=== PATIENT | female | born 1990 | race Two or more races ===

== ENCOUNTER → 2016-09-08 | Outpatient (CLI) | payer MEDICAID ==
[~2016-09-08] MED LIST: Ibuprofen Micronized PO; PREN-129 PO
== END | disposition home or self-care (01) ==
LOC: LAB 15:26
PROVIDERS: ATTEND Obstetrics & Gynecology
DX: N91.2 Amenorrhea, unspecified (principal)
CPT/HCPCS: 36415; 84144; 84702

== ENCOUNTER 2017-12-23 16:37 | Emergency (ER) | payer MEDICAID ==
[~2017-12-23] VITALS: Ht 170.2 cm; Wt 65.3 kg
[2017-12-23 16:40] VITALS: BP 117/54
[2017-12-23 17:30] LABS: Basophils # (auto) 0 uL; Basophils % (auto) 0.7 % (0.0-2.0); Eosinophils # (auto) 0.2 uL; Eosinophils % (auto) 2.9 % (0.0-7.0); Hematocrit 38.2 % (36.0-46.0); Hemoglobin 13.1 g/dL (12.2-16.2); Lymphocytes # (auto) 2.5 uL; Lymphocytes % (auto) 39.3 % (10.0-50.0); Mean Corpuscular Hemoglobin 31.8 pg (28.0-32.0); Mean Corpuscular Hgb Conc. 34.2 g/dL (32.0-36.0); Monocytes # (auto) 0.6 uL; Monocytes % (auto) 10.1 % (0.0-12.0); Neutrophils # (auto) 2.9 uL; Nucleated Red Blood Cells % 0.2 %; Platelet Count (auto) 219 10^3/uL (140-450); Red Blood Cells 4.11 10^6/uL (4.0-5.20); Red Cell Distribution Width 13.3 % (11.8-14.3); White Blood Cell 6.3 10^3/uL (4.4-10.8)
== END 2017-12-23 18:20 | disposition home or self-care (01) ==
LOC: ER 16:37
DX: O20.0 Threatened abortion (principal); Z3A.01 Less than 8 weeks gestation of pregnancy
CPT/HCPCS: 36415; 76801; 76817; 84702; 85025

== ENCOUNTER → 2018-01-03 | Outpatient (CLI) | payer MEDICAID | END | disposition home or self-care (01) | LOC: LAB 08:44 | PROVIDERS: ATTEND Obstetrics & Gynecology | DX: N91.2 Amenorrhea, unspecified (principal); N94.89 Other specified conditions associated with female genital organs and menstrual cycle | CPT/HCPCS: 36415; 84702 ==

== ENCOUNTER 2018-11-28 01:43 | Emergency (ER) | payer MEDICAID ==
[~2018-11-28] VITALS: Ht 165.1 cm; Wt 66.2 kg
[2018-11-28 02:24] LABS: Basophils # (auto) 0.1 uL; Basophils % (auto) 1.2 % (0.0-2.0); Eosinophils # (auto) 0.6 uL; Eosinophils % (auto) 5.6 % (0.0-7.0); Hematocrit 39.1 % (36.0-46.0); Hemoglobin 13.4 g/dL (12.2-16.2); Lymphocytes # (auto) 3.1 uL; Lymphocytes % (auto) 27.9 % (10.0-50.0); Mean Corpuscular Hemoglobin 31.5 pg (28.0-32.0); Mean Corpuscular Hgb Conc. 34.2 g/dL (32.0-36.0); Mean Corpuscular Volume 92.3 fL (80.0-100.0); Monocytes # (auto) 1.1 uL; Monocytes % (auto) 9.7 % (0.0-12.0); Neutrophils # (auto) 6.1 uL; Neutrophils % (auto) 55.6 % (37.0-80.0); Nucleated Red Blood Cells % 0.1 %; Platelet Count (auto) 206 10^3/uL (140-450); Red Blood Cells 4.24 10^6/uL (4.0-5.20); White Blood Cell 11.1 10^3/uL (4.4-10.8)
[2018-11-28 02:33] LABS: Urine Amorphous Crystal FEW /hpf (None Seen); Urine Bacteria FEW /hpf (None Seen); Urine Blood Negative /uL (Negative); Urine Specific Gravity 1.005 (1.001-1.035); Urine WBC 3 /hpf (0 - 5)
[2018-11-28 02:41] LABS: Albumin 3.7 g/dL (3.4-5.0); Calcium 9.1 mg/dL (8.5-10.1); Potassium 3.8 mmol/L (3.5-5.1)
[2018-11-28 02:44] LABS: BUN/Creatinine Ratio 11.3; Bilirubin, Total 0.2 mg/dL (0.2-1.0); Total Protein 7.1 g/dL (6.4-8.2)
[2018-11-28 04:30] VITALS: BP 104/63
== END 2018-11-28 05:28 | disposition home or self-care (01) ==
LOC: ER 01:47
DX: O26.891 Other specified pregnancy related conditions, first trimester (principal); R11.0 Nausea; R10.13 Epigastric pain; R51 Headache; Z79.1 Long term (current) use of non-steroidal anti-inflammatories (NSAID); Z79.899 Other long term (current) drug therapy; Z3A.01 Less than 8 weeks gestation of pregnancy
CPT/HCPCS: 36415; 76801; 76817; 80053; 81001; 84702; 85025

== ENCOUNTER 2019-02-21 22:43 | Observation (INO) | payer MEDICAID ==
[~2019-02-21] VITALS: Ht 170.2 cm; Wt 66.2 kg
== END 2019-02-21 23:25 | disposition home or self-care (01) | DRG 566 ==
LOC: LDRP 22:43
PROVIDERS: ADMIT Specialist; ATTEND Specialist
DX: O26.892 Other specified pregnancy related conditions, second trimester (principal); R10.9 Unspecified abdominal pain; Z3A.20 20 weeks gestation of pregnancy
CPT/HCPCS: 59025; 81002; G0378

== ENCOUNTER 2019-04-05 17:55 | Observation (INO) | payer MEDICAID ==
[~2019-04-05] VITALS: Ht 170.2 cm; Wt 68.9 kg
[2019-04-05] MEDS ORDERED: TERBUTALINE SULFATE 1 MG/ML 1ML VIAL SC SCH (20:15)
[2019-04-05] MEDS ORDERED: TERBUTALINE SULFATE 1 MG/ML 1ML VIAL SC ONE (20:15)
== END 2019-04-05 21:53 | disposition home or self-care (01) | DRG 566 ==
LOC: LDRP 17:55
PROVIDERS: ADMIT Specialist; ATTEND Specialist
DX: O26.892 Other specified pregnancy related conditions, second trimester (principal); R10.2 Pelvic and perineal pain; Z3A.26 26 weeks gestation of pregnancy
CPT/HCPCS: 59025; 81002; 96372; G0378; J3105

== ENCOUNTER 2019-04-15 13:39 | Observation (INO) | payer MEDICAID | END 2019-04-15 14:50 | disposition home or self-care (01) | DRG 566 | LOC: LDRP 13:39 | PROVIDERS: ADMIT Specialist; ATTEND Specialist | DX: O26.893 Other specified pregnancy related conditions, third trimester (principal); M54.9 Dorsalgia, unspecified; Z3A.28 28 weeks gestation of pregnancy | CPT/HCPCS: 59025; 81002; G0378 ==

== ENCOUNTER 2019-05-14 11:10 | Observation (INO) | payer MEDICAID ==
[~2019-05-14] VITALS: Ht 170.2 cm; Wt 72.6 kg
[2019-05-14] MEDS ORDERED: BETAMETHASONE ACET (6MG/ML) 5ML VIAL ONE (12:14)
[2019-05-14] MEDS ORDERED: BETAMETHASONE ACET (6MG/ML) 5ML VIAL IM SCH (12:30)
[2019-05-15] MEDS ORDERED: BETAMETHASONE ACET (6MG/ML) 5ML VIAL IM SCH (10:00)
[2019-05-15] MEDS ORDERED: NIF10C PO (13:26)
== END 2019-05-14 12:40 | disposition home or self-care (01) | DRG 563 ==
LOC: LDRP 11:10
PROVIDERS: ADMIT Obstetrics & Gynecology; ATTEND Obstetrics & Gynecology
DX: O60.03 Preterm labor without delivery, third trimester (principal); Z3A.32 32 weeks gestation of pregnancy
CPT/HCPCS: 59025; 81002; 96372; G0378; J0702

== ENCOUNTER 2019-05-15 12:45 | Observation (INO) | payer MEDICAID ==
[~2019-05-15] VITALS: Ht 30.5 cm; Wt 0.5 kg
[2019-05-15] MEDS ORDERED: BETAMETHASONE ACET (6MG/ML) 5ML VIAL IM ONE (13:15)
[2019-05-15] MEDS ORDERED: NIF10C PO (13:26)
== END 2019-05-15 13:51 | disposition home or self-care (01) | DRG 563 ==
LOC: LDRP 12:45
PROVIDERS: ADMIT Specialist; ATTEND Specialist
DX: O60.03 Preterm labor without delivery, third trimester (principal); Z3A.32 32 weeks gestation of pregnancy
CPT/HCPCS: 59025; 81002; 96372; G0378; J0702

== ENCOUNTER 2019-05-21 12:40 | Observation (INO) | payer MEDICAID ==
[~2019-05-21 12:40] MED LIST changes: -Ibuprofen Micronized PO; +NIF10C PO
== END 2019-05-21 13:35 | disposition home or self-care (01) | DRG 563 ==
LOC: LDRP 12:40
PROVIDERS: ADMIT Obstetrics & Gynecology; ATTEND Obstetrics & Gynecology
DX: O60.03 Preterm labor without delivery, third trimester (principal); Z3A.33 33 weeks gestation of pregnancy
CPT/HCPCS: 59025; 81002; G0378

== ENCOUNTER 2019-05-22 12:08 | Observation (INO) | payer MEDICAID | END 2019-05-22 13:10 | disposition home or self-care (01) | DRG 563 | LOC: LDRP 12:08 | PROVIDERS: ADMIT Obstetrics & Gynecology; ATTEND Obstetrics & Gynecology | DX: O60.03 Preterm labor without delivery, third trimester (principal); O26.893 Other specified pregnancy related conditions, third trimester; H53.8 Other visual disturbances; R42 Dizziness and giddiness; R10.30 Lower abdominal pain, unspecified; O99.89 Other specified diseases and conditions complicating pregnancy, childbirth and the puerperium; Z3A.33 33 weeks gestation of pregnancy | CPT/HCPCS: 59025; 81002; G0378 ==

== ENCOUNTER 2019-05-28 15:00 | Observation (INO) | payer MEDICAID | END 2019-05-28 15:55 | disposition home or self-care (01) | DRG 563 | LOC: LDRP 15:00 | PROVIDERS: ADMIT Specialist; ATTEND Specialist | DX: O60.03 Preterm labor without delivery, third trimester (principal); Z3A.34 34 weeks gestation of pregnancy | CPT/HCPCS: 59025; 81002; G0378 ==

== ENCOUNTER 2019-06-04 14:39 | Observation (INO) | payer MEDICAID | END 2019-06-04 15:45 | disposition home or self-care (01) | DRG 563 | LOC: LDRP 14:39 | PROVIDERS: ADMIT Obstetrics & Gynecology; ATTEND Obstetrics & Gynecology | DX: O60.03 Preterm labor without delivery, third trimester (principal); O26.873 Cervical shortening, third trimester; Z3A.35 35 weeks gestation of pregnancy | CPT/HCPCS: 59025; 81002; G0378 ==

== ENCOUNTER 2019-06-06 23:05 | Observation (INO) | payer MEDICAID | END 2019-06-07 00:53 | disposition home or self-care (01) | DRG 566 | LOC: LDRP 23:05 | PROVIDERS: ADMIT Specialist; ATTEND Specialist | DX: O34.63 Maternal care for abnormality of vagina, third trimester (principal); N89.8 Other specified noninflammatory disorders of vagina; Z3A.35 35 weeks gestation of pregnancy | CPT/HCPCS: 59025; 76815; 81002; G0378 ==

== ENCOUNTER 2019-06-09 19:16 | Observation (INO) | payer MEDICAID | END 2019-06-09 20:14 | disposition home or self-care (01) | DRG 566 | LOC: LDRP 19:16 | PROVIDERS: ADMIT Obstetrics & Gynecology; ATTEND Obstetrics & Gynecology | DX: O62.9 Abnormality of forces of labor, unspecified (principal); O60.03 Preterm labor without delivery, third trimester; Z3A.36 36 weeks gestation of pregnancy | CPT/HCPCS: 59025; 81002; G0378 ==

== ENCOUNTER 2019-06-12 11:05 | Observation (INO) | payer MEDICAID | END 2019-06-12 12:40 | disposition home or self-care (01) | DRG 563 | LOC: LDRP 11:05 | PROVIDERS: ADMIT Obstetrics & Gynecology; ATTEND Obstetrics & Gynecology | DX: O60.03 Preterm labor without delivery, third trimester (principal); Z3A.36 36 weeks gestation of pregnancy | CPT/HCPCS: 59025; 81002; G0378 ==

== ENCOUNTER 2019-06-19 09:40 | Observation (INO) | payer MEDICAID | END 2019-06-19 10:21 | disposition home or self-care (01) | DRG 563 | LOC: LDRP 09:40 | PROVIDERS: ADMIT Obstetrics & Gynecology; ATTEND Obstetrics & Gynecology | DX: O60.03 Preterm labor without delivery, third trimester (principal); Z3A.37 37 weeks gestation of pregnancy | CPT/HCPCS: 59025; G0378 ==

== ENCOUNTER 2019-06-24 10:05 | Observation (INO) | payer MEDICAID ==
[~2019-06-24 10:05] MED LIST changes: -NIF10C PO
== END 2019-06-24 12:30 | disposition home or self-care (01) | DRG 861 ==
LOC: LDRP 10:05
PROVIDERS: ADMIT Obstetrics & Gynecology; ATTEND Obstetrics & Gynecology
DX: Z34.90 Encounter for supervision of normal pregnancy, unspecified, unspecified trimester (principal)
CPT/HCPCS: 59025; 81002; G0378

== ENCOUNTER 2019-07-04 18:46 | Emergency (ER) | payer MEDICAID ==
[~2019-07-04] VITALS: Ht 170.2 cm; Wt 66.7 kg
[2019-07-04 21:36] LABS: Albumin 2.9 g/dL (3.4-5.0); BUN/Creatinine Ratio 5.7; Potassium 3.3 mmol/L (3.5-5.1)
[2019-07-04 21:39] LABS: Bilirubin, Total 0.5 mg/dL (0.2-1.0); Total Protein 7.6 g/dL (6.4-8.2)
[2019-07-04 21:40] LABS: Basophils # (auto) 0 uL; Basophils % (auto) 0.2 % (0.0-2.0); Eosinophils # (auto) 0 uL; Eosinophils % (auto) 0.4 % (0.0-7.0); Hematocrit 38.4 % (36.0-46.0); Lymphocytes % (auto) 17.1 % (10.0-50.0); Mean Corpuscular Hemoglobin 32.2 pg (28.0-32.0); Mean Corpuscular Hgb Conc. 33.8 g/dL (32.0-36.0); Mean Corpuscular Volume 95.3 fL (80.0-100.0); Monocytes % (auto) 8.8 % (0.0-12.0); Neutrophils # (auto) 8.7 uL; Neutrophils % (auto) 73.5 % (37.0-80.0); Platelet Count (auto) 295 10^3/uL (140-450); Red Blood Cells 4.03 10^6/uL (4.0-5.20); Red Cell Distribution Width 13.3 % (11.8-14.3); White Blood Cell 11.9 10^3/uL (4.4-10.8)
[2019-07-05 03:19] VITALS: BP 110/70
[2019-07-05] MEDS ORDERED: METHYLERGONOVINE MALEATE 0.2 MG/ML AMP IM ONE (04:30)
[2019-07-05] MEDS ORDERED: SODIUM CHLORIDE 0.9% 1,000 ML IV ONE (04:45)
== END 2019-07-05 06:19 | disposition home or self-care (01) ==
LOC: ER 18:46
DX: O72.1 Other immediate postpartum hemorrhage (principal); O86.20 Urinary tract infection following delivery, unspecified
CPT/HCPCS: 36415; 76856; 80053; 85025; 96372; 99284; J2210

== ENCOUNTER 2022-07-07 09:41 | Observation (INO) | payer MEDICAID | END 2022-07-07 12:15 | disposition home or self-care (01) | LOC: LDRP 09:41 → UNDOADMOB 09:41 → LDRP 09:46 → UNDODISOB 12:15 | PROVIDERS: ADMIT Obstetrics & Gynecology; ATTEND Obstetrics & Gynecology | DX: O13.2 Gestational [pregnancy-induced] hypertension without significant proteinuria, second trimester (principal); O46.92 Antepartum hemorrhage, unspecified, second trimester; Z3A.26 26 weeks gestation of pregnancy | CPT/HCPCS: 59025; 76815; 81002; 94760; G0378 ==

== ENCOUNTER 2022-07-20 23:25 | Emergency (ER) | payer MEDICAID ==
[~2022-07-20] VITALS: Ht 170.2 cm; Wt 67.5 kg
[2022-07-21 05:21] VITALS: BP 117/64
== END 2022-07-21 05:30 | disposition home or self-care (01) ==
LOC: ER 23:25
DX: O99.513 Diseases of the respiratory system complicating pregnancy, third trimester (principal); J06.9 Acute upper respiratory infection, unspecified; Z20.822 Contact with and (suspected) exposure to COVID-19; Z3A.28 28 weeks gestation of pregnancy
CPT/HCPCS: 36415; 87426; 87804

== ENCOUNTER 2022-08-02 11:26 | Observation (INO) | payer MEDICAID ==
[~2022-08-02] VITALS: Ht 170.2 cm; Wt 69.9 kg
[2022-08-02] MEDS ORDERED: TERBUTALINE SULFATE 1 MG/ML 1ML VIAL SC SCH (12:30)
[2022-08-02] MEDS ORDERED: NIFEdipine 10 MG CAP PO ONE (12:30)
[2022-08-02] MEDS ORDERED: BETAMETHASONE ACET (30mg/5ml) 5ml Vial 6mg/ml IM ONE (12:45)
[2022-08-02] MEDS ORDERED: NIF10C PO (13:58)
[2022-08-02] MEDS ORDERED: PREN-96 PO (13:58)
[2022-08-03] MEDS ORDERED: HYDR250I6 IM (13:41)
== END 2022-08-02 14:05 | disposition home or self-care (01) ==
LOC: UNDOADMOB 11:26 → LDRP 11:26 → UNDODISOB 14:05
PROVIDERS: ADMIT Obstetrics & Gynecology; ATTEND Obstetrics & Gynecology
DX: O60.03 Preterm labor without delivery, third trimester (principal); Z3A.30 30 weeks gestation of pregnancy
CPT/HCPCS: 59025; 81002; 94760; 96372; G0378; J0702; J3105

== ENCOUNTER 2022-08-03 08:12 | Observation (INO) | payer MEDICAID ==
[~2022-08-03] VITALS: Ht 170.2 cm; Wt 68.0 kg
[~2022-08-03 08:12] MED LIST changes: +NIF10C PO; +PREN-96 PO
[2022-08-03] MEDS ORDERED: BETAMETHASONE ACET (30mg/5ml) 5ml Vial 6mg/ml IM SCH (13:30)
[2022-08-03] MEDS ORDERED: HYDR250I6 IM (13:41)
== END 2022-08-03 14:15 | disposition home or self-care (01) ==
LOC: UNDOADMOB 12:21 → LDRP 12:21
PROVIDERS: ADMIT Obstetrics & Gynecology; ATTEND Obstetrics & Gynecology
DX: O60.03 Preterm labor without delivery, third trimester (principal); O26.873 Cervical shortening, third trimester; O62.9 Abnormality of forces of labor, unspecified; Z3A.30 30 weeks gestation of pregnancy
CPT/HCPCS: 59025; 81002; 94760; 96372; G0378

== ENCOUNTER 2022-08-10 19:26 | Observation (INO) | payer MEDICAID ==
[~2022-08-10 19:26] MED LIST changes: +HYDR250I6 IM
== END 2022-08-10 21:08 | disposition home or self-care (01) ==
LOC: LDRP 19:26 → UNDOADMIN 19:26 → UNDODISIN 21:08 → EDSTATUS 08-23 09:45
PROVIDERS: ADMIT Obstetrics & Gynecology; ATTEND Obstetrics & Gynecology
DX: O60.03 Preterm labor without delivery, third trimester (principal); Z3A.31 31 weeks gestation of pregnancy
CPT/HCPCS: 59025; 81002; 94760; G0378

== ENCOUNTER 2022-08-13 19:11 | Observation (INO) | payer MEDICAID ==
[~2022-08-13] VITALS: Ht 167.6 cm; Wt 63.5 kg
[2022-08-13] MEDS ORDERED: NIFEdipine 10 MG CAP PO SCH ×2 (20:00)
== END 2022-08-13 20:17 | disposition home or self-care (01) ==
LOC: LDRP 19:11
PROVIDERS: ADMIT Obstetrics & Gynecology; ATTEND Obstetrics & Gynecology
DX: O60.03 Preterm labor without delivery, third trimester (principal); Z3A.31 31 weeks gestation of pregnancy; Z91.040 Latex allergy status
CPT/HCPCS: 59025; 94760; G0378

== ENCOUNTER 2022-08-17 12:10 | Observation (INO) | payer MEDICAID ==
[~2022-08-17] VITALS: Ht 170.2 cm; Wt 70.3 kg
== END 2022-08-17 12:57 | disposition home or self-care (01) ==
LOC: LDRP 12:10 → UNDOADMOB 12:10 → LDRP 12:12 → UNDODISOB 12:57
PROVIDERS: ADMIT Obstetrics & Gynecology; ATTEND Obstetrics & Gynecology
DX: O60.03 Preterm labor without delivery, third trimester (principal); Z3A.32 32 weeks gestation of pregnancy; Z91.040 Latex allergy status
CPT/HCPCS: 59025; 81002; 94760; G0378

== ENCOUNTER 2022-08-22 19:41 | Observation (INO) | payer MEDICAID ==
[~2022-08-22] VITALS: Ht 170.2 cm; Wt 69.4 kg
[2022-08-22] MEDS ORDERED: LACTATED RINGER'S 1,000 ML IV ONE (21:00)
[2022-08-22] MEDS: TERBUTALINE SULFATE 1 MG/ML 1ML VIAL SC PRN ×3 (21:11→23:12)
== END 2022-08-23 01:10 | disposition home or self-care (01) ==
LOC: LDRP 19:41
PROVIDERS: ADMIT Obstetrics & Gynecology; ATTEND Obstetrics & Gynecology
DX: O62.9 Abnormality of forces of labor, unspecified (principal); Z3A.32 32 weeks gestation of pregnancy; Z91.040 Latex allergy status
CPT/HCPCS: 59025; 81002; 94760; 96360; 96361; 96372; G0378; J3105

== ENCOUNTER 2022-08-24 11:25 | Observation (INO) | payer MEDICAID | END 2022-08-24 12:37 | disposition home or self-care (01) | LOC: LDRP 11:25 → UNDOADMOB 11:25 → LDRP 11:34 → UNDODISOB 12:37 | PROVIDERS: ADMIT Obstetrics & Gynecology; ATTEND Obstetrics & Gynecology | DX: O60.03 Preterm labor without delivery, third trimester (principal); O62.9 Abnormality of forces of labor, unspecified; O26.893 Other specified pregnancy related conditions, third trimester; N89.8 Other specified noninflammatory disorders of vagina; Z3A.33 33 weeks gestation of pregnancy | CPT/HCPCS: 59025; 81002; 94760; G0378 ==

== ENCOUNTER 2022-08-31 09:56 | Observation (INO) | payer MEDICAID | END 2022-08-31 13:34 | disposition home or self-care (01) | LOC: UNDOADMOB 12:41 → LDRP 12:41 → UNDODISOB 13:34 | PROVIDERS: ADMIT Obstetrics & Gynecology; ATTEND Obstetrics & Gynecology | DX: O60.03 Preterm labor without delivery, third trimester (principal); Z3A.34 34 weeks gestation of pregnancy; Z91.040 Latex allergy status | CPT/HCPCS: 59025; 81002; 94760; G0378 ==

== ENCOUNTER 2022-09-07 12:00 | Observation (INO) | payer MEDICAID | END 2022-09-07 14:41 | disposition home or self-care (01) | LOC: UNDOADMOB 12:00 → LDRP 12:00 → UNDODISOB 14:41 | PROVIDERS: ADMIT Obstetrics & Gynecology; ATTEND Obstetrics & Gynecology | DX: O60.03 Preterm labor without delivery, third trimester (principal); Z3A.35 35 weeks gestation of pregnancy; Z91.040 Latex allergy status | CPT/HCPCS: 59025; 81002; 94760; G0378 ==

== ENCOUNTER → 2022-09-07 | Outpatient (CLI) | payer MEDICAID ==
[2022-09-07 12:40] LABS: Basophils # (auto) 0 10 ^3/uL (0-0.2); Basophils % (auto) 0.4 % (0.0-2.0); Eosinophils # (auto) 0.2 10 ^3/uL (0-0.8); Hematocrit 37.7 % (36.0-46.0); Lymphocytes % (auto) 24.5 % (10.0-50.0); Mean Corpuscular Hemoglobin 32.4 pg (28.0-32.0); Mean Corpuscular Hgb Conc. 34.4 g/dL (32.0-36.0); Mean Corpuscular Volume 94.3 fL (80.0-100.0); Monocytes # (auto) 0.9 10 ^3/uL (0-1.3); Monocytes % (auto) 11.3 % (0.0-12.0); Neutrophils % (auto) 60.8 % (37.0-80.0); Nucleated Red Blood Cells % 0.1 %; Red Cell Distribution Width 13.7 % (11.8-14.3); White Blood Cell 8.2 10^3/uL (4.4-10.8)
[2022-09-08 08:06] LABS: RPR Non Reactive (Non Reactive)
== END | disposition home or self-care (01) ==
LOC: LAB 11:50
PROVIDERS: ATTEND Obstetrics & Gynecology
DX: Z34.80 Encounter for supervision of other normal pregnancy, unspecified trimester (principal); Z3A.00 Weeks of gestation of pregnancy not specified
CPT/HCPCS: 36415; 84112; 85025; 86592

== ENCOUNTER 2022-09-19 17:00 | Observation (INO) | payer MEDICAID | END 2022-09-19 19:16 | disposition home or self-care (01) | LOC: LDRP 17:00 | PROVIDERS: ADMIT Obstetrics & Gynecology; ATTEND Obstetrics & Gynecology | DX: O62.9 Abnormality of forces of labor, unspecified (principal); O34.63 Maternal care for abnormality of vagina, third trimester; N89.8 Other specified noninflammatory disorders of vagina; Z3A.36 36 weeks gestation of pregnancy; Z91.040 Latex allergy status | CPT/HCPCS: 59025; 81002; 82948; G0378 ==

== ENCOUNTER 2022-09-23 11:33 | Inpatient (IN) | payer MEDICAID ==
[~2022-09-23] VITALS: Ht 170.2 cm; Wt 71.7 kg
[2022-09-23] MEDS ORDERED: LACTATED RINGER'S 1,000 ML IV ONE ×2 (12:15→14:30)
[2022-09-23] MEDS ORDERED: BUTORPHANOL TARTRATE 2 MG/1 ML VIAL IV PRN ×2 (13:15)
[2022-09-23] MEDS ORDERED: PROMETHAZINE HCL 25 MG/ML 1ML IV PRN (13:15)
[2022-09-23] MEDS ORDERED: PHISODERM TOP SOLN 240ML BTL TOP PRN (13:15)
[2022-09-23] MEDS ORDERED: LACT. RINGERS/OXYTOCIN 20UNITS 1,000 ML IV SCH (13:15)
[2022-09-23] MEDS ORDERED: LIDOCAINE 2%HCL (LOCAL ANESTH.) INJ 20ML MDV IJ PRN (13:15)
[2022-09-23] MEDS ORDERED: LACTATED RINGER'S 1,000 ML IV SCH (13:15)
[2022-09-23] MEDS ORDERED: LACT. RINGERS/OXYTOCIN 20UNITS 500 ML IV ONE ×4 (13:15→13:45)
[2022-09-23] MEDS ORDERED: WITCH HAZEL-GLYCERIN PAD TOP PRN (13:15)
[2022-09-23] MEDS ORDERED: DERMOPLAST 60ML BOTTLE TOP PRN (13:15)
[2022-09-23 14:02] LABS: Basophils # (auto) 0 10 ^3/uL (0-0.2); Basophils % (auto) 0.3 % (0.0-2.0); Eosinophils # (auto) 0.1 10 ^3/uL (0-0.8); Eosinophils % (auto) 1.4 % (0.0-7.0); Hematocrit 37.2 % (36.0-46.0); Hemoglobin 12.9 g/dL (12.2-16.2); Lymphocytes # (auto) 1.6 10 ^3/uL (0.4-5.4); Lymphocytes % (auto) 22.3 % (10.0-50.0); Mean Corpuscular Hemoglobin 32.5 pg (28.0-32.0); Mean Corpuscular Hgb Conc. 34.6 g/dL (32.0-36.0); Mean Corpuscular Volume 93.8 fL (80.0-100.0); Monocytes # (auto) 0.7 10 ^3/uL (0-1.3); Monocytes % (auto) 9.8 % (0.0-12.0); Neutrophils # (auto) 4.8 10 ^3/uL (1.6-8.6); Neutrophils % (auto) 66.2 % (37.0-80.0); Nucleated Red Blood Cells % 0.2 %; Red Blood Cells 3.97 10^6/uL (4.0-5.20); Red Cell Distribution Width 13.8 % (11.8-14.3); White Blood Cell 7.3 10^3/uL (4.4-10.8)
[2022-09-23 14:08] LABS: Urine Bacteria NONE SEEN /hpf (None Seen); Urine Blood Negative /uL (Negative); Urine Specific Gravity 1.002 (1.001-1.035); Urine WBC <1 /hpf (0 - 5)
[2022-09-23 14:15] LABS: Calcium 8.9 mg/dL (8.5-10.1); INR 0.89 (0.9-1.15); Partial Thromboplastin Time 26.5 sec (24.6-33.4); Potassium 3.2 mmol/L (3.5-5.1)
[2022-09-23 14:15] LABS: Alcohol, Urine < 3.0 mg/dL (0-10); Amphetamine Screen, Urine NEGATIVE (NEGATIVE); Barbiturate Scree,Urine NEGATIVE (NEGATIVE); Benzodiazephine Screen, Urine NEGATIVE (NEGATIVE); Cannabinoid Screen, Urine NEGATIVE (NEGATIVE); Cocaine Screen, Urine NEGATIVE (NEGATIVE); Opiate Scree,Urine NEGATIVE (NEGATIVE); Phencyclidine Screen, Urine NEGATIVE (NEGATIVE)
[2022-09-23 14:21] LABS: Albumin 2.7 g/dL (3.4-5.0); BUN/Creatinine Ratio 5.3; Bilirubin, Total 0.5 mg/dL (0.2-1.0); Total Protein 6.6 g/dL (6.4-8.2)
[2022-09-23] MEDS ORDERED: ROPIVACAINE HCL 200 ML EPI SCH (14:30)
[2022-09-23] MEDS ORDERED: ePHEDrine SULFATE 50 MG/ML AMP IV ONE (14:30)
[2022-09-23] MEDS ORDERED: Lidocaine W-Epinephrine 1.5%-1:200,000 INJ 10ml Vial ONE (14:40)
[2022-09-23] MEDS ORDERED: miSOPROStol 100 mcg TAB ONE (17:37)
[2022-09-23] MEDS ORDERED: METHYLERGONOVINE MALEATE 0.2 MG/ML AMP IM ONE (17:37)
[2022-09-23] MEDS ORDERED: miSOPROStol 100 mcg TAB SL PRN (17:45)
[2022-09-23] MEDS ORDERED: ONDANSETRON ODT 4 MG TAB PO PRN (20:00)
[2022-09-23] MEDS: DOCUSATE SOD 100 MG CAP PO SCH (22:12)
[2022-09-23] MEDS: IBUPROFEN 600 MG TAB PO PRN (22:12)
[2022-09-23 23:00] VITALS: BP 122/74
[2022-09-24] MEDS ORDERED: RHO (D) IMMUNE GLOBULIN 300 MCG INJ IM ONE (02:00)
[2022-09-24] MEDS: ACETAMINOPHEN 325 MG TAB PO PRN ×2 (02:38→20:38)
[2022-09-24 02:45] VITALS: BP 90/53
[2022-09-24 06:07] LABS: RPR Non Reactive (Non Reactive)
[2022-09-24 07:45] VITALS: BP 103/67
[2022-09-24] MEDS: IBUPROFEN 600 MG TAB PO PRN ×2 (08:11→14:48)
[2022-09-24 11:30] VITALS: BP 105/65
[2022-09-24 19:30] VITALS: BP 117/76
[2022-09-24] MEDS: DOCUSATE SOD 100 MG CAP PO SCH (22:16)
[2022-09-24 23:30] VITALS: BP 92/56
[2022-09-25] MEDS: IBUPROFEN 600 MG TAB PO PRN ×2 (02:54→10:24)
[2022-09-25 03:00] VITALS: BP 100/57
[2022-09-25 07:00] VITALS: BP 102/60
[2022-09-25] MEDS: ACETAMINOPHEN 325 MG TAB PO PRN (07:14)
[2022-09-25 11:00] VITALS: BP 109/56
== END 2022-09-25 14:10 | disposition home or self-care (01) | DRG 560 ==
LOC: LDRP 11:33 → OBSVTOIN 13:04 → LDRP 13:05
PROVIDERS: ADMIT Obstetrics & Gynecology; ATTEND Obstetrics & Gynecology
PROC: 10E0XZZ Delivery of Products of Conception, External Approach (ICD-10-PCS; principal; 2022-09-23)
PROC: 3E0R3BZ Introduction of Anesthetic Agent into Spinal Canal, Percutaneous Approach (ICD-10-PCS; 2022-09-23)
PROC: 00HU33Z Insertion of Infusion Device into Spinal Canal, Percutaneous Approach (ICD-10-PCS; 2022-09-23)
PROC: 10907ZC Drainage of Amniotic Fluid, Therapeutic from Products of Conception, Via Natural or Artificial Opening (ICD-10-PCS; 2022-09-23)
PROC: 3E0234Z Introduction of Serum, Toxoid and Vaccine into Muscle, Percutaneous Approach (ICD-10-PCS; 2022-09-24)
DX: O69.81X0 Labor and delivery complicated by cord around neck, without compression, not applicable or unspecified (principal); Z37.0 Single live birth; O60.23X0 Term delivery with preterm labor, third trimester, not applicable or unspecified; Z3A.37 37 weeks gestation of pregnancy; Z23 Encounter for immunization; O26.893 Other specified pregnancy related conditions, third trimester; Z67.41 Type O blood, Rh negative; Z20.822 Contact with and (suspected) exposure to COVID-19
CPT/HCPCS: 36415; 59025; 59409; 62282; 80053; 80307; 81001; 81002; 85025; 85610; 85730; 86592; 86850; 86870; 86900; 86901; 87426; 90384; 94760; 96360; 96361; 96365; 96366; G0378; J2590